=== PATIENT | female | born 1965 | race Caucasian/White ===

== ENCOUNTER → 2017-01-03 | Day surgery (SDC) | payer OTHER ==
[~2017-01-03] VITALS: Ht 172.7 cm; Wt 83.9 kg
[~2017-01-03] MED LIST: ALPRAZOLAM1 MG PO; Benadryl PO; DEPO-PROVER150 MG/ML IM; DILAUDID2 MG PO; FIORICET 325 MG1 TAB PO; FLEXERIL10 MG PO; FLUOXETINE HCL40 MG PO; GOOD SENSE IBU200 MG PO; LITHIUM CARBON300 M3 PO; MULTIVITAMIN1 TAB PO; OMEPRAZOLE40 MG PO; PERCOCET 325 MG1 TA2 PO; PROTONIX 40MG T40 MG PO; QUETIAPINE FUMA50 MG PO; VICODIN5-300 PO; VITAMIN C500 M3 PO; ZOFRAN ODT4 MG SL
--- NOTE | 2017-01-03 10:43 | Operative Report ---
Operative/Inv Procedure Report Surgery Date: 01/03/17 Name of Procedure: LEEP Pre-Operative Diagnosis: Ros 2 Post-Operative Diagnosis: same Estimated Blood Loss: scant Surgeon/Sandfill Operator Surface: MARIELA RIVERA,TOM Bhat Anesthesia: TIVA Specimens: LEEP AND ECC Complications: none Condition: good Operative Indication: cin2 Operative/Procedure Note Note: The patient was brought to the operating room and placed in dorsal supine position. While the patient was awake a timeout was undertaken after the induction of anesthesia patient was placed in high stirrups and insulated speculum was placed in the vagina the cervix was infiltrated with a dilute solution of 1% lidocaine with epinephrine. The cervix was then painted with Lugol's solution to outline the area of dysplasia. The LEEP cone biopsy was undertaken care not to incur any adventitious burn. An ECC was performed the cone bed was cauterized with electrocautery and Monsel solution was applied hemostasis was excellent patient was moved to recovery room in good condition
== END ==
LOC: STS 03:59
DX: N87.1 Moderate cervical dysplasia (principal); N72 Inflammatory disease of cervix uteri; E78.00 Pure hypercholesterolemia, unspecified; F17.200 Nicotine dependence, unspecified, uncomplicated
CPT/HCPCS: 81025; 88305; 88307; J2250